=== PATIENT | female | born 1985 | race Caucasian/White ===

== ENCOUNTER 2019-06-26 23:44 | Emergency (ER) | payer SELFPAY ==
[~2019-06-26] VITALS: Ht 157.5 cm; Wt 59.0 kg
[2019-06-26 23:48] VITALS: BP_SYST 147
[2019-06-27] MEDS ORDERED: chlordiazePOXIDE HCL 25 MG CAPSULE PO ONE (00:15)
[2019-06-27 00:48] LABS: EOSINOPHILS % (AUTO) 0.1 % (0.0-4.0); HEMATOCRIT 42.2 % (36-48); HEMOGLOBIN 14.5 g/dL (12.0-16.0)
[2019-06-27 00:54] LABS: BASOPHILS % (AUTO) 0.5 % (0.0-2.0); LYMPHOCYTES # (AUTO) 4.6 K/uL (1.0-5.5); LYMPHOCYTES % (AUTO) 57.6 % (20.5-51.5); MEAN CORPUSCULAR HEMOGLOBIN 37 pg (27-31); MEAN CORPUSCULAR HGB CONC 34 % (32-36); MEAN CORPUSCULAR VOLUME 107 fL (79.0-98.0); MONOCYTES # (AUTO) 0.4 K/uL (0.0-1.0); MONOCYTES % (AUTO) 4.5 % (1.7-9.3); NEUTROPHILS % (AUTO) 37.3 % (40.0-70.0); PLATELET COUNT (AUTO) 250 K/uL (130-430); RED BLOOD CELL COUNT(AUTO) 3.96 MIL/uL (4.2-6.2); RED CELL DISTRIBUTION WIDTH 13.4 % (9.0-15.0)
[2019-06-27 00:56] LABS: CALCIUM 8.5 mg/dL (8.4-11.0); CREATININE 0.61 mg/dL (0.55-1.30); POTASSIUM 3.9 mmol/L (3.5-5.1)
[2019-06-27 01:01] LABS: ALBUMIN 3.6 g/dL (3.4-4.8); TOTAL BILIRUBIN 0.6 mg/dL (0.0-1.0)
[2019-06-27 01:50] VITALS: BP_SYST 143
== END 2019-06-27 01:50 | disposition home or self-care (01) ==
LOC: SED 23:44
DX: F10.129 Alcohol abuse with intoxication, unspecified (principal); I10 Essential (primary) hypertension; R73.9 Hyperglycemia, unspecified; Y90.9 Presence of alcohol in blood, level not specified
CPT/HCPCS: 36415; 80053; 81002; 81025; 83690-TC; 85025; 99283

== ENCOUNTER 2019-12-11 22:00 | Inpatient (IN) | payer MEDICAID, OTHER ==
[~2019-12-11] VITALS: Ht 157.5 cm; Wt 64.4 kg
[2019-12-11 22:05] VITALS: BP_SYST 164
[2019-12-11] MEDS ORDERED: NACL 0.9% 1,000 ML IV ONE (22:10)
--- NOTE | 2019-12-11 22:10 | NUR ---
ER at bedside examining patient.
--- NOTE | 2019-12-11 22:10 | NUR ---
Patient to ER bed 6 to gown for evaluation. Side rails up. Report given to ELI GREY.
--- NOTE | 2019-12-11 22:10 | NUR ---
presents with a 1 day history of gradual onset, mild, nausea and vomiting. Patient has a history of alcohol abuse. Admits to drinking alcohol today. Denies any abdominal pain, diarrhea, chest pain, shortness of breath. Per mother, patient would like to be medically stabilized and cleared as she has a bed for her waiting at [facility].
[2019-12-11] MEDS ORDERED: DIPHENHYDRAMINE INJ 50 MG/ML VIAL IVP ONE (22:15)
[2019-12-11] MEDS ORDERED: LORazepam 2 MG/ML VIAL IVP ONE (22:15)
--- NOTE | 2019-12-11 23:15 | NUR ---
Pt states that she is feeling anxious. Given medication per 's Orders.
[2019-12-11 23:16] LABS: BASOPHILS # (AUTO) 0.1 K/uL (0.0-0.2); BASOPHILS % (AUTO) 0.7 % (0.0-2.0); EOSINOPHILS % (AUTO) 0.1 % (0.0-4.0); HEMATOCRIT 41.3 % (36-48); HEMOGLOBIN 14.1 g/dL (12.0-16.0); LYMPHOCYTES # (AUTO) 3.9 K/uL (1.0-5.5); LYMPHOCYTES % (AUTO) 42.9 % (20.5-51.5); MEAN CORPUSCULAR HEMOGLOBIN 34 pg (27-31); MEAN CORPUSCULAR HGB CONC 34 % (32-36); MEAN CORPUSCULAR VOLUME 99 fL (79.0-98.0); MONOCYTES # (AUTO) 0.5 K/uL (0.0-1.0); MONOCYTES % (AUTO) 5.8 % (1.7-9.3); NEUTROPHILS # (AUTO) 4.6 K/uL (1.8-7.7); NEUTROPHILS % (AUTO) 50.5 % (40.0-70.0); PLATELET COUNT (AUTO) 224 K/uL (130-430); RED BLOOD CELL COUNT(AUTO) 4.19 MIL/uL (4.2-6.2); RED CELL DISTRIBUTION WIDTH 12.9 % (9.0-15.0); WHITE BLOOD COUNT (AUTO) 9.2 K/uL (4.8-10.8)
[2019-12-11 23:31] LABS: CALCIUM 8.8 mg/dL (8.4-11.0); CREATININE 0.56 mg/dL (0.55-1.30); POTASSIUM 3.6 mmol/L (3.5-5.1)
[2019-12-11 23:37] LABS: ALBUMIN 3.6 g/dL (3.4-4.8); TOTAL BILIRUBIN 0.5 mg/dL (0.0-1.0)
--- NOTE | 2019-12-12 | NUR ---
Pt resting in ED Bed comfortably. No acute distress.
[2019-12-12] MEDS ORDERED: FOLIC ACID 1 MG, THIAMINE HCL 100 MG, MAGNESIUM SULFATE 1 GM, MVI 10 ML in NACL 0.9% 1,... IV ONE (00:15)
--- NOTE | 2019-12-12 00:30 | NUR ---
Spoke with Mother of patient per patient request. Informed both mother and patient of intent to admit patient for acute alcohol withdrawal.
--- NOTE | 2019-12-12 01:30 | NUR ---
Patient will be admitted to care of . Admitted to Tele unit. Will go to room 103B. Belongings list completed. Complete and up to date summary report printed. SBAR report to be given at bedside with opportunity for questions.
--- NOTE | 2019-12-12 02:30 | NUR ---
Transfer to Telemetry via ACLS protocol. Licensed nurse present. IV present no signs or symptoms of infiltration.
--- NOTE | 2019-12-12 02:49 | NUR ---
ADMIT NOTE Received pt from ER to the floor with a diagnosis of acute alcohol intoxication. Admission process initiated. patient oriented to pain management, safety and call light-teach back done.
--- NOTE | 2019-12-12 02:55 | NUR ---
ROUNDS PATIENT RESTING COMFORTABLY IN BED, NOT IN DISTRESS, VITALS STABLE.DENIES ANY PAIN AND DISCOMFORT AT THIS TIME. ADMISSION ASSESSMENT DONE AND DOCUEMNTED. ORIENTED TO HER ROOM, PHONE AND CALL LIGHT. NEEDS ATTENDED TO. SAFETY MEASURES IN PLACED. BED IN LOW AND LOCKED POSITION. BED ALARM ON. CALL LIGHT PLACED WITHIN REACH.
[2019-12-12 03:01] VITALS: BP_SYST 150
[2019-12-12] MEDS ORDERED: MVI 10 ML VIAL IV ONE (03:24)
[2019-12-12] MEDS ORDERED: FOLIC ACID 5 MG/ML VIAL IV ONE (03:24)
[2019-12-12] MEDS ORDERED: THIAMINE HCL 100 MG/ML VIAL ONE (03:24)
[2019-12-12] MEDS ORDERED: MAGNESIUM SULFATE 1 GM/2 ML VIAL ONE (03:24)
--- NOTE | 2019-12-12 04:38 | NUR ---
ROUNDS PATIENT ASLEEP, RESPIRATIONS EVEN AND UNLABORED, NO SOB NOTED. WILL CONTINUE TO MONITOR.
--- NOTE | 2019-12-12 06:37 | NUR ---
CLOSING NOTES PATIENT STILL ASLEEP, NO SOB NOR PAIN AND DISCOMFORT NOTED, VITALS STABLE. ALL NEEDS ATTENDED TO. SAFETY MEASURES MAINTAINED. CALL LIGHT PLACED WITHIN REACH.
[2019-12-12 07:53] VITALS: BP_SYST 145
--- NOTE | 2019-12-12 08:00 | NUR ---
Initial notes Awake, still feel dizzy, assisted to the bathroom and voided. denies any pain or discomfort. Banana bag infusing well at this time. No acute distress noted. Enc to call for help as needed. Bed alarm on. will continue to monitor.
--- NOTE | 2019-12-12 10:30 | NUR ---
PAGED PAGED DR. RAE, RE PATIENT IS NAUSEATED AND WANTS SOMETHING FOR NAUSEA.
[2019-12-12] MEDS ORDERED: ONDANSETRON HCL 4 MG/2 ML VIAL IVP PRN (11:15)
--- NOTE | 2019-12-12 11:15 | NUR ---
Spoke to Dr. Feliz with new orders of [facility].
[2019-12-12] MEDS: chlordiazePOXIDE HCL 25 MG CAPSULE PO PRN ×3 (11:28→21:49)
--- NOTE | 2019-12-12 11:30 | NUR ---
Notes- In bed, has some shaking. librium given as needed. Call light in reach. enc patient to call for help as needed. will monitor.
[2019-12-12 12:30] VITALS: BP_SYST 148
--- NOTE | 2019-12-12 13:35 | NUR ---
Outpatient Therapist: :met with pt. [employer] met with pt. bedside for a Social Work interview and a DCPA. Pt. was sitting upright. [employer] asked if she wanted [employer] to come back so she can eat her lunch. Pt. stated no because she was not up for eating. She was feeling very shaky. Pt. agreed to the interview. Pt. maintained eye contact and answered appropriately. Pt. stated she had just moved to her mom's home from [place] and did not know her new address. t. 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 She feels that was not the ideal place to work because of her alcohol issues. She stated at times she feels anxious. When asked if there was anything that stands out to her as a trigger or stressor, pt. responded, "It could be anything". [employer]IST mentioned she may want to speak to a mental health professional to be assessed for Anxiety. Pt. went on to share her alcoholic drink is Fannie. When asked pt. stated drinking has become a big problem about a year ago. She stated she will drink a lot a night and when she wakes up with a hangover, she will drink some more. She has participated in [facility]'s 40 day program. She stated she participated the whole 40 days. They had assisted her in getting her to speak to a therapist(name unknown) via Zoom. This resulted in a prescription for Lesterol and Clonidine. When [employer]IST was speaking to pt., pt. stated she was feeling very anxious. She stated since being at the hospital, she has not taken the two meds. [employer]IST shared that she will tell her Rn., Azeb about her meds. Pt. denied feeling suicidal or ever attempting to hurt herself. She stated her support system is her mom and her sister. She said the recovery program, [place] taught her to stay busy, find a hobby. She stated she goes hiking and running. She is not ready to go back to find work. [employer]IST shared with her numerous resources including substance abuse, DPOA form and explained it to her, medical clinic to find a PCP and a Mental Health resource. [employer]IST asked if she had plans to go to another rehab program. Pt. stated she does not want to go because it will be the same. [employer]IST educated pt. stating she will take away from the program a little more help. Pt. said that makes sense. [employer]IST shared with her a business card. [employer]IST will remain available as needed. [employer]IST spoke to [employer]. to share with her pt. had been taking the two medications for Anxiety (as stated by pt. ).
[2019-12-12] MEDS ORDERED: PANTOPRAZOLE SODIUM 40 MG TAB PO ONE (14:15)
[2019-12-12] MEDS ORDERED: FOLIC ACID 1 MG TABLET PO ONE (14:30)
[2019-12-12] MEDS ORDERED: THIAMINE HCL 100 MG TABLET PO ONE (14:30)
[2019-12-12] MEDS: cloNIDine HCL 0.1 MG TABLET PO SCH ×2 (14:55→21:43)
[2019-12-12] MEDS: KCL 20 mEq in D5/0.45NS 1000mL 1,000 ML IV SCH (14:56)
--- NOTE | 2019-12-12 15:00 | NUR ---
HIGH ALERT NOTE: Called Dr. proctor back at [] identified within the medical roster to verify physician authenticity.
--- NOTE | 2019-12-12 15:50 | NUR ---
MD ROUNDS Seen by DR. Vaughan at bedside.
[2019-12-12 17:00] VITALS: BP_SYST 140
[2019-12-12 20:00] VITALS: BP_SYST 148
[2019-12-12] MEDS ORDERED: ENOXAPARIN SODIUM 40 MG/0.4 ML SYRINGE SUBCUT SCH (21:00)
[2019-12-12] MEDS ORDERED: traZODone HCL 50 MG TABLET (DESYREL) PO SCH (21:00)
--- NOTE | 2019-12-12 22:25 | NUR ---
CONSULT REASON FOR CONSULT: ALCOHOL ABUSE DR. MOORE WAS IN THE HOSPITAL AND SAW THE PATIENT. DR. MOORE IS COVERING FOR DR. SPEARS
[2019-12-13] MEDS: KCL 20 mEq in D5/0.45NS 1000mL 1,000 ML IV SCH (03:32)
[2019-12-13] MEDS: chlordiazePOXIDE HCL 25 MG CAPSULE PO PRN ×2 (03:34→09:01)
[2019-12-13 08:00] VITALS: BP_SYST 132
--- NOTE | 2019-12-13 08:00 | NUR ---
Initial notes In bed, awake, feels a little better, no shaking noted. Still no appetite. IVF infusing well. Denies any chest pain or shortness of breath. Update plan of care. Enc to call for help as needed. Call light in reach. will monitor.
[2019-12-13] MEDS ORDERED: THIAMINE HCL 100 MG TABLET PO SCH (09:00)
[2019-12-13] MEDS ORDERED: PANTOPRAZOLE SODIUM 40 MG TAB PO SCH (09:00)
[2019-12-13] MEDS ORDERED: FOLIC ACID 1 MG TABLET PO SCH (09:00)
[2019-12-13] MEDS: cloNIDine HCL 0.1 MG TABLET PO SCH ×2 (09:01→15:23)
--- NOTE | 2019-12-13 11:00 | NUR ---
Rounds In bed, resting, no complaints or does not need anything at this time. Instructed patient to call for help as needed.
[2019-12-13 12:13] VITALS: BP_SYST 119
--- NOTE | 2019-12-13 15:30 | NUR ---
Notes In bed, watching TV, feels better. Patient stated that she wanted and ready to go home. Informed patient that the doctor here and he is making rounds. Patient verbalize understanding.
[2019-12-13 15:36] VITALS: BP_SYST 121
[2019-12-13] MEDS ORDERED: CAT.1 PO (17:31)
[2019-12-13] MEDS ORDERED: TRAZ-250 PO (17:33)
[2019-12-13] MEDS ORDERED: VIS50 PO (17:33)
[2019-12-13] MEDS ORDERED: THIA50TA10 PO (17:34)
[2019-12-13] MEDS ORDERED: FOLI-43 PO (17:35)
[2019-12-13 17:41] VITALS: BP_SYST 121
--- NOTE | 2019-12-13 18:19 | NUR ---
Discharge notes D/C pt home with family. Denies any pain or shortness of breath. ambulate with steady gait. no shakiness noted. Discharge instruction and prescription given and discussed with patient. patient verbalize understanding IVL and arm band removed..
== END 2019-12-13 18:19 | disposition home or self-care (01) | DRG 775 ==
LOC: SED 22:00 → STU 12-12 00:13
PROVIDERS: ADMIT Internal Medicine; ATTEND Internal Medicine
DX: F10.239 Alcohol dependence with withdrawal, unspecified (principal); F10.229 Alcohol dependence with intoxication, unspecified; F41.9 Anxiety disorder, unspecified
CPT/HCPCS: 36415; 80053; 83690-TC; 85025; 96365; 96375; 99285; G0378; G0482; J1200; J1650; J2060; J2405; J3411; J3475; J3490; J7030